=== PATIENT | female | born 1975 | race Caucasian/White ===

== ENCOUNTER 2017-03-11 12:25 | Emergency (ER) | payer BC ==
[~2017-03-11] VITALS: Ht 170.2 cm; Wt 74.4 kg
[~2017-03-11 12:25] MED LIST: CEFDINIR 300MG300 MG PO; LEVOTHYROXIN0.125 MG PO; PREDNISONE 20MG20 MG PO; PRENATAL PLUS1 TA1 PO; SYNTHROID0.112 MG PO; Tri-Sprintec 281 TAB PO
--- OUTSIDE RECORDS SUMMARY | 2017-03-11 12:31 | External Medical Summary Rpt | CCD ---
Author Author JEANNETTE Address Unknown Phone [email or web address] Purpose Continuity of Care Document - through 2016
--- OUTSIDE RECORDS SUMMARY | 2017-03-11 12:31 | External Medical Summary Rpt | CCD ---
Author Author JEANNETTE Address Unknown Phone Purpose Continuity of Care Document - through 2016
--- OUTSIDE RECORDS SUMMARY | 2017-03-11 12:32 | External Medical Summary Rpt | CCD ---
Demographics Preferred Language Polish Marital Status Unknown Worship Affiliation Unknown Race Unknown Ethnic Group Unknown Author Author , RONALD CARDENAS Address Unknown Phone Immunization Unable to retrieve immunization data due to connection failure with Immunization Registry. Please try again later.
--- OUTSIDE RECORDS SUMMARY | 2017-03-11 12:32 | External Medical Summary Rpt ---
Author Author RONADL Carroll, [employer] Organization [employer] Address Unknown Phone Unavailable
--- OUTSIDE RECORDS SUMMARY | 2017-03-11 12:32 | External Medical Summary Rpt ---
Author Author RONALD Carroll, [employer] Address Unknown Phone Unavailable
--- OUTSIDE RECORDS SUMMARY | 2017-03-11 12:32 | External Medical Summary Rpt | CCD ---
Demographics Preferred Language Tajik Marital Status Unknown Synagogue Affiliation Unknown Race Unknown Ethnic Group Unknown Author Author , RONALD CARDENAS Address Unknown Phone Immunization Unable to retrieve immunization data due to connection failure with Immunization Registry. Please try again later.
--- NOTE | 2017-03-11 13:00 | Urgent Treatment Center Report ---
History of Present Issue Date/Time Seen by Provider 03/11/17 1246 Visit Reason Pt arrived:Walked Presenting Problem:PT DX WITH PNEUMONIA LAST WEEK ON 03/05. PT C/O WORSENING BACK PAIN AROUND LUNGS. PT ALSO C/O LT FOOT PAIN Location if Accident: Onset of symptoms date/time:/ or onset unknown for:MEDICAL HX UNKNOWN Have you (or family members/close friends) recently traveled outside the [place]? N If Yes, where/when: Have you had exposure to infectious disease within the past month? TB? Other? Specify: Patient state that she was diagnosed last week with pneumonia States that she is feeling better from the pneumonia but woke up this morning with worsening pain in her upper back State that pain is worsened when she moves Complaining of pain also in her heel of her left foot State that she is unsure if she did something to injure it or not States that pain in worse when she stands on it and attempts to walk ALLERGIES Coded Allergies: No Known Allergies (03/05/17) Home Medications Active Scripts CEFDINIR (Cefdinir) 300 MG PO BID #14 CAP Prov: 03/05/17 Prednisone (Prednisone 20MG) 20 MG PO BID #10 TAB Prov: 03/05/17 Reported Medications Levothyroxine Sodium (Levothyroxine 0.125MG) 0.125 MG PO DAILY NORGESTIMATE-ETHINYL ESTRADIOL (Tri-Sprintec Tablet) 1 TAB PO QDAY History Medical History General CAD? No Angina: No [place]: No Hypertension? No Hyperlipidemia? No CHF? No DVT? No PE? No COPD? No Asthma? No Anemia? No GERD? No Gastric ulcers? No GI Bleed? No Hernia? No Thyroid Problems? Yes Hypothyroidism? Yes CVA? No Seizures? No Diabetes? No Renal Insuffiency? No UTI? No Stones? No BPH? No GB Disease: No Nephritic Syndrome? No Asplenia? No Hepatitis? No Sickle Cell Disease? No Arthritis? No Migraines? No Cataracts? No Glaucoma? No MRSA? No HIV? No TB? No Anxiety? No Depression? No Cancer? No More? No Immunization HX DT/Tetanus 1-4 YRS Surgical Hx Previous Surgery?Y X3 BREAST BIOPSY D & C Social History Smoking Hx Smoker: Never Smoker Tobacco: No Alcohol Alcohol: Yes Review of Systems All Other Systems Reviewed and Negative Musculoskeletal back pain, muscle pain, muscle stiffness Physical Exam Vital Signs Vital Signs Date Time Temp Pulse Resp B/P Pulse O2 O2 Flow FiO2 Ox Delivery Rate 03/11 1343 99.0 70 20 121/82 97 03/11 1243 99.0 70 20 121/82 97 General Appearance normal appearance, WD/WN, no apparent distress Neck normal inspection, non-tender, supple, full range of motion Respiratory Status Yes: trachea midline, chest symmetrical, non tender chest. No: respiratory distress. Lung Sounds bilateral: normal breath sounds, lungs clear. Cardiovascular normal exam, regular rate/rhythm, no peripheral edema Back normal inspection, no CVA tenderness, gait normal, muscle spasm, Muscle spasm felt and noted in left upper shoulder area and when touched patient state that it would cause pain accross her upper back Extremities Pain in left foot and heel area, denies known injury no swelling, no discoloration, good pulses, good cap refill Neurologic alert, normal exam, oriented x 3 Medical Decision Making LABS/Meds/Orders Pt receiving controlled substance in ED? No Results/Orders Orders Procedure Date/time Status FOOT-LT-3 VIEWS 03/11 1240 Active CHEST(2 VIEWS-NOT PORTABLE) 03/11 1240 Active XRAY/CT/US XRAY/CT/US XRAY chest, foot XR interpretation by reviewed by me Xray Results no fracture seen, no infiltrates Departure Departure Time of Disposition 1327 Disposition DC Home or Self Care(routine) Clinical Impression Primary Impression: Back pain Qualifiers: Back pain location: back pain in other location Chronicity: unspecified Qualified Code: M54.89 - Other dorsalgia Condition STABLE Referrals JIM GAMBINO (Family): 3 Days-Call Office if no improved Patient Instructions DI for Thoracic Back Pain Additional Instructions *Ibuprofen angela 6 hours with meal as needed for pain/inflammation *Not additional anti-inflammatory like motrin, aleve, advil with the above amount of ibuprofen. You can still take Tylenol every 4 hours as needed if you need something else for pain *Ice 20 minutes every 2 hours for the first 48 hours after the initial injury followed by moist heat every 20 minutes 3-4 times a day to affected area *Muscle relaxer every 8 hours as needed for muscle spasms but remember, it WILL cause drowsiness You cannot take it and drive, operate machinery or care for small children. *Keep this area active, no movement leads to more stiffness, However take it easy and avoid heavy lifting pushing or pulling Discharge Counseling Counseled pt/family regarding diagnosis, test results, medications/RX, home care, follow up needs Prescriptions Current Visit Scripts Ibuprofen (Ibuprofen 800MG) 800 MG PO QIDP PRN pain #30 TAB Cyclobenzaprine Hcl (Flexeril) 10 MG PO TID #15 TAB at 4973
[2017-03-11] MEDS ORDERED: FLEXERIL10 MG PO (13:31)
[2017-03-11] MEDS ORDERED: IBUPROFEN800 MG PO (13:31)
[2017-03-11 13:43] VITALS: BP 121/82
--- NOTE | 2017-03-11 15:17 | RADIOLOGY REPORT PS360 ---
FOOT-LT-3 VIEWS HISTORY: PAIN FOR A FEW DAYS pain and heel 2 days no trauma Patient Age: 41 years: Female Ordering Physician: AURELIO DAWSON APRN TECHNIQUE: 3 views left foot COMPARISON :None FINDINGS . Left foot appears intact. Specifically the calcaneus appears intact with no fracture nor good evidence of lesion. No spurring at the insertion of the Achilles tendon. No plantar calcaneal spur. Although subtalar joint not well seen on plain film grossly unremarkable. Note generous os trigonum more posterior process of talus overlying the posterior aspect of talus at posterior ankle. Incidentally noted. The toes and metatarsals intact. Tarsals otherwise unremarkable IMPRESSION: Left foot intact. Calcaneus intact.
--- NOTE | 2017-03-11 15:19 | RADIOLOGY REPORT PS360 ---
CHEST(2 VIEWS-NOT PORTABLE) HISTORY: PAIN FOR A FEW DAYS chest pain.. Had Pneumonia 2 weeks Patient Age: 41 years: Female Ordering Physician: AURELIO DAWSON APRN TECHNIQUE: PA and lateral chest COMPARISON :03/05/2017 2 view chest FINDINGS Lungs are well expanded and clear with no active disease. Heart bobby and mediastinal structures appear satisfactory. No significant new findings. Chest wall T-spine intact. No pneumothorax no pleural effusion. IMPRESSION: . Negative chest. No active disease evident on plain film.
== END 2017-03-11 13:44 | disposition home or self-care (01) ==
LOC: UTC 12:25
DX: M54.89 Other dorsalgia (principal); M79.672 Pain in left foot